=== PATIENT | female | born 1950 | race Caucasian/White ===

== ENCOUNTER 2016-08-03 10:29 | Outpatient (CLI) | payer MEDICARE, OTHER ==
[2016-08-03 11:01] LABS: Band 1 % (5-11); Mean Platelet Volume 6.8 fL (7.4-10.4); Neutrophil 59 % (42-75); Red Blood Cell (RBC) Count 4.95 mill/uL (4.20-5.40); White Blood Cell (WBC) Count 8.4 thou/uL (4.8-10.8)
[2016-08-03 11:40] LABS: ALT (SGPT) 23 U/L (0-55); AST (SGOT) 30 U/L (5-34); Alkaline Phosphatase 69 U/L (40-150); Anion Gap 21 mmol/L (10-20); BUN (Urea Nitrogen) 20 mg/dL (9.8-20.1); Bilirubin, Total 0.8 mg/dL (0.2-1.2); Calc. Creatinine Clearance 0 mL/min (70-130); Calcium 10.7 mg/dL (7.8-10.44); Carbon Dioxide 31 mmol/L (23-31); Chloride 93 mmol/L (98-107); Estimated GFR-MDRD 76; Globulin 3.2 g/dL (2.4-3.5); LDL Cholesterol, Calculated 102 mg/dL; Protein, Total 7.8 g/dL (5.8-8.1)
== END 2016-08-03 10:30 | disposition home or self-care (01) ==
LOC: HPCALD 10:29
PROVIDERS: ATTEND Family Medicine
DX: I51.9 Heart disease, unspecified (principal); K74.60 Unspecified cirrhosis of liver; E07.9 Disorder of thyroid, unspecified
CPT/HCPCS: 36415; 80053; 80061; 84443; 85025